=== PATIENT | female | born 1985 | race Two or more races ===

== ENCOUNTER → 2019-09-04 | Outpatient (CLI) | payer MEDICAID, OTHER ==
[2014-08-25 14:10] VITALS: BP 124/77
--- NOTE | 2019-09-04 16:53 | CARD ---
MR#: [id number] Date of Study: 09/04/2019 Ordering Physician: MASOOD HUI, Referring Physician: MASOOD HUI, Tech: Kristy Sales APPROVED REPORT EXAM: Two-dimensional and M-mode echocardiogram with Doppler and color Doppler. Other Information Quality : AverageHR: 76bpm INDICATION Palpitations Dizziness and Vertigo 2D DIMENSIONS RVDd3.1 (2.9-3.5cm)Left Atrium(2D)4.0 (1.6-4.0cm) IVSd0.8 (0.7-1.1cm)Aortic Root(2D)2.6 (2.0-3.7cm) LVDd5.1 (3.9-5.9cm)LVOT Diameter2.0 (1.8-2.4cm) PWd0.9 (0.7-1.1cm)LVDs3.4 (2.5-4.0cm) FS (%) 34.5 %SV79.8 ml LVEF(%)63.3 (>50%) Aortic Valve AoV Peak [place].129.9cm/sAoV VTI24.8cm AO Peak GR.6.7mmHgLVOT Peak [place].97.3cm/s LVOT VTI 20.23cmAO Mean GR.4mmHg ABI (VMAX)1.72ak3BCD (VTI)2.50cm2 Mitral Valve MV E Hfmnxphu92.2cm/sMV DECEL YMSF404ks MV A Nbqvxypy70.2cm/sMV E Mean Gr.2mmHg MV QGK45onG/A Ratio1.3 MVA (PHT)2.93cm2 TDI E/Lateral E'3.9E/Medial E'4.5 Pulmonary Valve PV Peak Pmssqewp606.4cm/sPV Peak Grad.4mmHg Tricuspid Valve TR P. Kqvznifl371rm/sRAP ZBPRHOVX3grOo TR Peak Gr.48niXzLTWV46jmXu Pulmonary Vein S1 Piecjels14.4cm/sD2 Pjeskwau88.7cm/s PVa [id number] LEFT VENTRICLE The left ventricle is normal size. There is normal left ventricular wall thickness. The left ventricu lar systolic function is normal and the ejection fraction is within normal range. The Ejection Fracti on is 55-60%. There is normal LV segmental wall motion. The left ventricular diastolic function and f illing is normal for age. RIGHT VENTRICLE The right ventricle is normal size. There is normal right ventricular wall thickness. The right ventr icular systolic function is normal. ATRIA The left atrium size is normal. The right atrium size is normal. The interatrial septum is intact wit h no evidence for an atrial septal defect or patent foramen ovale as noted on 2-D or Doppler imaging. AORTIC VALVE The aortic valve is normal in structure and function. Doppler and Color Flow revealed no significant aortic regurgitation. There is no significant aortic valvular stenosis. MITRAL VALVE The mitral valve is normal in structure and function. There is no evidence of mitral valve prolapse. There is no mitral valve stenosis. Doppler and Color-flow revealed trace mitral regurgitation. TRICUSPID VALVE The tricuspid valve is normal in structure and function. Doppler and Color Flow revealed trace tricus pid regurgitation with an estimated PAP of 25 mmHg. There is no tricuspid valve stenosis. PULMONIC VALVE The pulmonic valve is not well visualized. Doppler and Color Flow revealed trace pulmonic valvular re gurgitation. There is no pulmonic valvular stenosis. GREAT VESSELS The aortic root is normal in size. The IVC is normal in size and collapses >50% with inspiration. PERICARDIAL EFFUSION There is no evidence of significant pericardial effusion. Critical Notification Critical Value: No <Conclusion> The left ventricular systolic function is normal and the ejection fraction is within normal range. Th e Ejection Fraction is 55-60%. There is normal LV segmental wall motion. Signed by : Jorge Rincon, Electronically Approved : 09/04/2019 16:52:41
== END | disposition home or self-care (01) ==
LOC: ECHO 15:15
PROVIDERS: ATTEND Internal Medicine Cardiovascular Disease
DX: R00.2 Palpitations (principal)
CPT/HCPCS: 93306

== ENCOUNTER → 2021-07-18 | Outpatient (CLI) | payer OTHER, MEDICAID ==
[2014-08-25 14:10] VITALS: BP 124/77
--- NOTE | 2021-07-18 16:04 | CARD ---
MR#: [id number] Date of Study: 07/18/2021 Ordering Physician: MASOOD HUI, Referring Physician: Leatha ZACARIAS: KERLINE [facility] APPROVED REPORT INDICATION Dyspnea RISK FACTORS Obesity Diabetes PROCEDURE The patient underwent an Exercise Stress Test using the [place] Protocol. Blood pressure, heart rate, a nd EKG were monitored. An Echocardiogram was performed by plc technician in four stages in quad fashion. At peak stress four se lected images were obtained and placed side by side with resting images for comparison. STRESS ECHO FINDINGS The resting Echocardiogram showed normal left ventricular systolic contractility with an estimated Ej ection Fraction of about 55 %. The Stress Echocardiogram showed normal augmentation of myocardial wall segments using a 16 segment m omkar. The Stress Echocardiogram left ventricular systolic contractility has an estimated Ejection Fraction of about 65%. Test Type: Exercise Stress Nurse/Tech: Aliza Ty R.N. Test Indications: c/p Cardiac History and Allergies: obesity, COVID 19 IN March 2021 Medications: see EHR Medical History: see EHR Resting ECG: SR w/ very flat T waves and inverted T waves in leads III, V3-V5 Resting Heart Rate: 94 bpm Resting Blood Pressure: 120/70mmHg Pretest Chest Pain: No chest pain Nurse/Tech Notes S1S2, lungs cta Stress Symptoms denies pain, tightness or pressure. b/p did drop after pt was in recovery- denied any dizziness issur es. had her stand up at the end of recovery and b/p nabil up and did not drop . POST EXERCISE Reason for Termination: Reached target heart rate Target HR: Yes Max HR: 191 bpm 102% of Maximum Predicted HR: 187 bpm Exercise duration: 7:04 min:sec, 3 Stage Exercise capacity: 10.1METs Max Blood Pressure: 160/92mmHg Heart Rate response to exercise: wnl Chest Pain: No. Arrhythmia: No. ST Change: No. INTERPRETATION Stress EKG Conclusion: The resting EKG showed a sinus rhythm with mild nonspecific ST-T wave changes. The stress EKG showed no significant changes from baseline. No EKG evidence of stress-induced ischemia or significant arrhythmias. <Conclusion> Good exercise tolerance with patient walking for 7 minutes and 4 seconds on a Al[place] protocol. No chest pain with exertion. No EKG evidence of stress-induced ischemia. Normal LV systolic function at rest. Normal LV response to exertion with no regional wall motion abnormalities. Low risk treadmill stress echo. Signed by : Chang Loya MD Electronically Approved : 07/18/2021 16:03:38
== END ==
LOC: ECHO 13:35
PROVIDERS: ATTEND Internal Medicine Cardiovascular Disease
DX: R06.09 Other forms of dyspnea (principal)
CPT/HCPCS: 93017; 93350